=== PATIENT | female | born 1960 | race Caucasian/White ===

== ENCOUNTER 2024-01-24 09:08 | Emergency (ER) | payer BC ==
[2024-01-24 09:30] VITALS: BP 149/80; PULSE 93; RESP 18; TEMP 98.4; BMI 29.9
[2024-01-24] MEDS ORDERED: CARBAMIDE PEROXIDE 6.5% OTIC 15 ML BOTTLE ONE (09:30)
[2024-01-24] MEDS: FLUTICASONE PROP 0.05% 16 GM NASAL SPRAY NS ONE (09:45)
[2024-01-24] MEDS: CARBAMIDE PEROXIDE 6.5% OTIC 15 ML BOTTLE AD ONE (09:45)
== END 2024-01-24 10:37 | disposition home or self-care (01) ==
LOC: FER 09:08
DX: H61.21 Impacted cerumen, right ear (principal)
CPT/HCPCS: 99283-25

== ENCOUNTER 2024-11-17 16:23 | Emergency (ER) | payer BC ==
[2024-11-17 16:36] VITALS: BMI 25.0
[2024-11-17 16:40] VITALS: BP 142/97; PULSE 118; RESP 20; TEMP 100.6
[2024-11-17] MEDS: ACETAMINOPHEN 325 MG TABLET (FP) PO ONE (17:38)
[2024-11-17] MEDS ORDERED: ACETAMINOPHEN 325 MG TABLET (FP) ONE (17:38)
== END 2024-11-17 17:39 | disposition home or self-care (01) ==
LOC: FER 16:23
DX: R07.9 Chest pain, unspecified (principal); R09.81 Nasal congestion; R05.9 Cough, unspecified; J39.8 Other specified diseases of upper respiratory tract; B97.89 Other viral agents as the cause of diseases classified elsewhere
CPT/HCPCS: 99283-25